=== PATIENT | female | born 2000 | race Caucasian/White ===

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

== ENCOUNTER 2022-10-01 13:30 | Emergency (ER) | payer OTHER, SELFPAY ==
[2022-10-01] VITALS (11 sets, daily range): BP systolic 111–143; BP diastolic 56–70; PULSE 99–129; RESP 16–30; TEMP 36.2; O2SAT 94–100
--- NOTE | ~2022-10-01 | XR_ITS ---
XR chest 1V portable INDICATION: Shortness of breath and cough TECHNIQUE: 2 view chest. FINDINGS: . Comparison to 11/09/2021 There is mild bilateral interstitial prominence and peribronchial cuffing. There is no focal consoli dation, pleural effusion, or pneumothorax. The cardiomediastinal silhouette is normal. IMPRESSION: 1. Findings most consistent with bronchiolitis versus an atypical or viral pneumonia. Reviewed, dictated and finalized at location L. GER SEMICONDUCTOR IMPRESSION: 1. Findings most consistent with bronchiolitis versus an atypical or viral pne [facility].
--- NOTE | 2022-10-01 14:12 | ED.GENADULT ---
HPI - General Adult General Chief complaint: Asthma Stated complaint: asthma exacerbation Time Seen by Provider: 10/01/22 14:03 History of Present Illness HPI narrative: 22-year-old female with history of asthma presented to the emergency department for evaluation of worsening cough and wheeze. Patient states she did have a small amount of cough yesterday and did use her albuterol inhaler and did feel improved. Patient states this morning she felt that her wheeze was worsened. Patient did attempt to use her emergency inhaler and did do a nebulized breathing treatment as well. Patient did not feel these help significant today. Patient reports her medication did and 2020. Patient states that her asthma has been better controlled over the last few years. Patient states she is not a smoker. Patient believes she is vaccinated against COVID and influenza. Related Data Home Medications Medication Instructions Recorded Confirmed albuterol sulfate 90 mcg/actuation inhalation 09/13/19 aerosol inhaler beclomethasone dipropionate 80 inhalation 09/13/19 mcg/actuation HFA breath activated aerosol (Qvar RediHaler) escitalopram oxalate 10 mg tablet mg 09/13/19 famotidine 20 mg tablet 09/13/19 loratadine 10 mg tablet mg 09/13/19 mometasone-formoterol HFA 200 inhalation 09/13/19 mcg-5 mcg/actuation aerosol inhaler (Dulera) Allergies Allergy/AdvReac Type Severity Reaction Status Date / Time No Known Allergies Allergy Unknown Verified 10/01/22 13:31 Review of Systems Review of Systems: CONSTITUTIONAL: Denies fever, chills, or sweats. EYES: Denies visual changes, redness, or discharge. ENT: Denies rhinorrhea, congestion, sore throat, or otalgia. CARDIOVASCULAR: Denies chest pain, palpitations, or edema. RESPIRATORY: Denies cough or dyspnea. GASTROINTESTINAL: See HPI GENITOURINARY: Denies dysuria or hematuria. SKIN: Denies rash or itching. MUSCULOSKELETAL: Denies back pain, joint pain, or myalgia. NEUROLOGIC: Denies headache, numbness, or weakness. [facility], LAT[facility] Past Medical History Medical History (Updated 10/01/22 @ 21:29 by Chele Scott MD) Anxiety Depression Surgical History Surgical History (Updated 11/09/21 @ 01:30 by Rio Triplett MD) No pertinent past surgical history Social History Social History (Updated 09/13/19 @ 10:56 by Beverley Elias, GALLERY INTERN) Smoking status: Never smoker Exam Narrative: APPEARANCE: Well appearing, no pain, no distress, well-nourished. HEAD: normocephalic, atraumatic. EYES: PERRLA/EOMI, conjunctivae clear. NOSE: Normal no drainage THROAT: Pharynx clear, no exudate. NECK: Supple. No adenopathy, no masses. RESPIRATORY: Airway is patent, respirations nonlabored. Patient does have expiratory wheeze in bilateral lung suazo. CARDIOVASCULAR: Regular rate and rhythm without murmurs rubs or gallops. ABDOMINAL: Soft, nontender, nondistended, normal bowel sounds MUSCULOSKELETAL: Moves all extremities. Strength/ROM intact, No edema, No calf tenderness. NEURO: Alert. Cranial nerves II through XII intact. Grossly intact SKIN: Warm, dry. Normal Color Course Course Emergency Course: 22-year-old female with history of asthma. Patient was treated with albuterol nebulizer to help with her asthma exacerbation. Chest x-ray has been ordered to rule out possible underlying pneumonia. COVID and influenza is also being ordered. Patient family were updated on the plan for work-up and treatment. 3:07 PM patient was still having significant wheezing after her breathing treatment. Patient had a continuous neb of albuterol and ipratropium ordered. Patient was also treated with IV Solu-Medrol. 5:40 PM patient did feel improved with treatment. Patient's wheeze is significantly improved. Patient was started on azithromycin for atypical pneumonia. Patient and family were updated on the results of the work-up. All questions concerns were addressed. Vital Signs Vital sig
[2022-10-01] MEDS: ALBUTEROL SULFATE NEB 2.5 MG/3 ML INH 5 MG INHALATION (14:56)
[2022-10-01] MEDS: IPRATROPIUM BR 0.02% INH SOLN 0.5 MG/2.5 ML VIAL 2 MG INHALATION (15:16)
[2022-10-01] MEDS: ALBUTEROL SULFATE NEB 2.5 MG/3 ML INH 10 MG INHALATION (15:16)
[2022-10-01 16:35] LABS: Influenza A QL RT-PCR Negative (Negative); Influenza B QL RT-PCR Negative (Negative); RSV RNA, RT-PCR Negative (Negative); SARS-CoV-2 RNA PCR Negative
[2022-10-01] MEDS: methylPREDNISolone SOD SUCC 125 MG VIAL IV PUSH (16:50)
[2022-10-01] MEDS: SODIUM CHLORIDE 0.9% IV 1,000 ML 999 ML IV CONT (17:44)
== END 2022-10-01 19:08 | disposition home or self-care (01) ==
PROVIDERS: Emergency Provider Emergency Medicine
DX: J45.901 Unspecified asthma with (acute) exacerbation (principal); J18.9 Pneumonia, unspecified organism; Z20.822 Contact with and (suspected) exposure to COVID-19; F41.9 Anxiety disorder, unspecified; F32.A Depression, unspecified
CPT/HCPCS: 71045; 87637; 94640; 96365; 96375; 99284; J0456; J2930; J7030

== ENCOUNTER 2024-07-12 00:34 | Emergency (ER) | payer SELFPAY ==
[2024-07-12] VITALS (7 sets, daily range): BP systolic 109–141; BP diastolic 78–95; PULSE 77–116; RESP 14–20; TEMP 36.5–36.7; O2SAT 99–100
--- NOTE | ~2024-07-12 | XR_ITS ---
Clinical Indication: Shortness of breath PA and lateral views of the chest: Comparison: 10/01/2022 Findings: The lungs are clear, without evidence of focal consolidation or pleural effusion. Cardiome diastinal silhouette is within normal limits. Bones and soft tissues are unremarkable. Impression: Normal chest. Reviewed, dictated and finalized at location . [facility] PHYS Impression: Normal chest.
--- NOTE | 2024-07-12 00:41 | ECG_ITS ---
Test Date: 2024-07-12 00:45:56 Measurements Intervals [place] Rate: 103 P: 40 MT: 120 QRS: 54 QRSD: 81 T: 43 QT: 330 QTc: 432 Interpretive Statements SINUS TACHYCARDIA OTHERWISE NORMAL ECG No previous ECG available for comparison Electronically Signed On 07-12-2024 10:56:43 STAFF NURSE ICU RESOURCE TEAM by Ugo Alvarez M.D.
[2024-07-12 01:53] LABS: Basophils Absolute Auto 0.2 K/mm3 (0.0-0.1); Basophils Percent Auto 1.2 % (0.2-1.2); Eosinophils Absolute Auto 1.8 K/mm3 (0-0.3); Eosinophils Percent Auto 12.4 % (0-4.4); Hematocrit 42.3 % (37.0-47.0); Hemoglobin 14.1 g/dL (12.0-15.0); Immature Granulocyte Absolute 0.05 K/mm3 (0.00-0.031); Immature Granulocyte Percent A 0.3 % (0-0.5); Lymphocytes Absolute Auto 4.11 K/mm3 (0.9-3.2); Lymphocytes Percent Auto 28.2 % (18.3-44.2); Mean Corpuscular HGB Conc 33.3 g/dl (32-36); Mean Corpuscular Hemoglobin 28.3 pg (26-34); Mean Corpuscular Volume 84.8 fl (80-100); Mean Platelet Volume 9.9 fl (7.4-10.4); Monocytes Absolute Auto 0.7 K/mm3 (0.1-0.6); Neutrophils Absolute Auto 7.7 K/mm3 (1.3-6.7); Neutrophils Percent Auto 52.9 % (45.5-73.1); Platelet Count Result 303 k/mm3 (150-375); Red Blood Count 4.99 M/mm3 (4.2-5.4); White Blood Count 14.6 K/mm3 (4.5-10.0)
[2024-07-12 02:04] LABS: Alanine Aminotransferase 20 U/L (6-35); Albumin Level 4.4 g/dL (3.5-5.1); Alkaline Phosphatase 81 U/L (38-126); Anion Gap 5 mmol/L (4-12); Aspartate Amino Transferase 22 U/L (14-36); Bilirubin,Total 0.4 mg/dL (0.2-1.3); Blood Urea Nitrogen 10 mg/dL (7-17); Calcium 9.4 mg/dL (8.4-10.2); Carbon Dioxide 26 mmol/L (22-30); Chloride 107 mmol/L (98-107); Estimated CRCL calculation 137 ml/min; Estimated Glomerular Filt Rate > 60; Glucose 99 mg/dL (65-110); Sodium 138 mmol/L (137-145)
[2024-07-12] MEDS: IPRATROPIUM 0.5 MG/ALBUTEROL SULFATE 2.5 MG AMPUL.NEB 3 ML INHALATION (03:30)
[2024-07-12] MEDS: methylPREDNISolone SOD SUCC 125 MG VIAL IV PUSH (03:37)
[2024-07-12] MEDS: BENZONATATE 100 MG CAPSULE 200 MG PO (03:37)
[2024-07-12] MEDS: KETOROLAC 15 MG/ML VIAL (*BKC) IV PUSH (03:37)
--- NOTE | 2024-07-12 03:56 | ED.GENADULT ---
HPI - General Adult General Chief complaint: Shortness of Breath/Dyspnea Stated complaint: cough and wheezing for 2 weeks Time Seen by Provider: 07/12/24 02:32 History of Present Illness HPI narrative: Patient 24-year-old female who presents emergency department with chief complaint of cough and wheezing patient reports she has prior history of asthma reports she has been using albuterol inhaler and nebulizer without relief. The patient reports the cough is nonproductive denies fever Related Data Home Medications Medication Instructions Recorded Confirmed albuterol sulfate 90 mcg/actuation inhalation 09/13/19 aerosol inhaler beclomethasone dipropionate 80 inhalation 09/13/19 mcg/actuation HFA breath activated aerosol (Qvar RediHaler) escitalopram oxalate 10 mg tablet mg 09/13/19 famotidine 20 mg tablet 09/13/19 loratadine 10 mg tablet mg 09/13/19 mometasone-formoterol HFA 200 inhalation 09/13/19 mcg-5 mcg/actuation aerosol inhaler (Dulera) Allergies Allergy/AdvReac Type Severity Reaction Status Date / Time No Known Allergies Allergy Unknown Verified 07/12/24 00:35 Review of Systems Review of Systems: A 10 system review of systems was completed on the patient and is negative except for what is stated in the HPI. Nursing and ancillary documentation was reviewed. PMFSH Past Medical History Medical History Anxiety Depression Surgical History Surgical History No pertinent past surgical history Social History Social History Smoking status: Never smoker Exam Narrative: GENERAL: Well-appearing, well-nourished, and in no acute distress. HEAD: Normocephalic, atraumatic. EYES: PERRLA and EOMI. ENT: Nares clear, no rhinorrhea or epistaxis. Mucous membranes moist. NECK: Supple. CHEST: Scattered wheezes to auscultation. No respiratory distress. HEART: Regular rate and rhythm. No murmur heard. Normal peripheral pulses. ABDOMEN: Soft, nontender, nondistended, normal active bowel sounds. EXTREMITIES: Normal range of motion. No edema. SKIN: Warm, dry, no rash. NEURO: No focal deficits. Alert and oriented x3. PSYCH: Normal mood and affect. Course Vital Signs Vital signs: Vital Signs Temperature 36.5 C 07/12/24 00:37 Pulse Rate 116 H 07/12/24 00:37 Respiratory Rate 20 07/12/24 00:37 Blood Pressure 122/83 07/12/24 00:37 Pulse Oximetry 100 07/12/24 00:37 Oxygen Delivery Room Air 07/12/24 00:37 Temperature 36.7 C 07/12/24 03:09 Pulse Rate 95 07/12/24 03:30 Respiratory Rate 14 07/12/24 03:30 Blood Pressure 109/95 H 07/12/24 03:09 Pulse Oximetry 100 07/12/24 04:12 Oxygen Delivery Room Air 07/12/24 04:12 Medical Decision Making MDM Narrative Medical decision making narrative: Differential diagnosis includes pneumonia, asthma exacerbation, Chest x-ray showed no focal infiltrate The patient received IV steroids and breathing treatment emergency department Vital Signs Vital Signs: Vital Signs Temperature 36.5 C 07/12/24 00:37 Pulse Rate 116 H 07/12/24 00:37 Respiratory Rate 20 07/12/24 00:37 Blood Pressure 122/83 07/12/24 00:37 Pulse Oximetry 100 07/12/24 00:37 Oxygen Delivery Room Air 07/12/24 00:37 Temperature 36.7 C 07/12/24 03:09 Pulse Rate 95 07/12/24 03:30 Respiratory Rate 14 07/12/24 03:30 Blood Pressure 109/95 H 07/12/24 03:09 Pulse Oximetry 100 07/12/24 04:12 Oxygen Delivery Room Air 07/12/24 04:12 Lab Data 07/12/24 01:47 07/12/24 01:47 Labs: Lab Results 07/12/24 07/12/24 Range/Units 01:47 03:39 WBC 14.6 H (4.5-10.0) K/mm3 RBC 4.99 (4.2-5.4) M/mm3 Hgb 14.1 (12.0-15.0) g/dL Hct 42.3 (37.0-47.0) % MCV 84.8 (80-100) fl MCH 28.3 (26-34) pg MCHC 33.3 (32-36) g/dl RDW 13.0 (11.5-14.5) % Plt Count 303 (150-375) k/mm3 MPV 9.9 (7.4-10.4) fl Immature Gran % (Auto) 0.3 (0-0.5) % Neut % (Auto) 52.9 (45.5-73.1) % Lymph % (Auto) 28.2 (18.3-44.2) % [place] % (Auto) 5.0 (2.6-8.5) % Eos % (Auto) 12.4 H (0-4.4) % Baso % (Auto) 1.2 (0.2-1.2) % Lymph # (Auto) 4.11 H (0.9-3.2) K/mm3 [place] # (Auto) 0.7 H (0.1-0.6) K/mm3 Eos # (Auto) 1.8 H (0-0.3) K/mm3 Baso # (Auto) 0.2 H (0.0-0.1) K/mm3 Abs Immat Gran (auto) 0.05 H (0.00-0.031) K/mm3 Absolute Neuts (auto) 7.7 H (1.3-6.7) K/mm3 Absolute Nucleated RBC 0.000 (0.0-0.012) K/mm3 Nucleated RBC % 0.0 (0.0-0.2) % Sodium 138 (137-145) mmol/L Potassium 4.0 (3.4-5.0) mmol/L Chloride 107 (98-107) mmol/L Carbon Dioxide 26 (22-30) mmol/L Anion Gap 5 (4-12) mmol/L BUN 10 (7-17) mg/dL Creatinine 0.70 (0.7-1.0) mg/dL Estim Creat Clear Calc 137 ml/min Estimated GFR > 60 (59 - ) Glucose 99 (65-110) mg/dL Calcium 9.4 (8.4-10.2) mg/dL Total Bilirubin 0.4 (0.2-1.3) mg/dL AST 22 (14-36) U/L ALT 20 (6-35) U/L Alkaline Phosphatase 81 (38-126) U/L Total Protein 7.0 (6.3-8.2) g/dL Albumin 4.4 (3.5-5.1) g/dL Influenza A (RT-PCR) Negative (Negative) Influenza B (RT-PCR) Negative (Negative) RSV (RT-PCR) Negative (Negative) SARS-CoV-2 RNA (RT-PCR) Negative (Negative) Discharge Plan Discharge Clinical Impression: Acute viral bronchitis Patient Disposition: Home, Self-Care Condition: Stable Instructions: Antibiotic Form, Acute Bronchitis (ED) Prescriptions: New prednisone 20 mg tablet 40 mg PO DAILY 5 Days Qty: 10 0RF benzonatate 200 mg capsule 200 mg PO TID PRN (Reason: cough) Qty: 21 0RF albuterol sulfate 90 mcg/actuation HFA aerosol inhaler 2 puff inhalation QID PRN (Reason: shortness of breath or wheezing) Qty: 8.5 0RF albuterol sulfate 2.5 mg /3 mL (0.083 %) solution for nebulization 2.5 mg inhalation Q6-8H PRN (Reason: bronchospasm) Qty: 75 0RF No Action famotidine 20 mg tablet albuterol sulfate 90 mcg/actuation HFA aerosol inhaler INHALATION loratadine 10 mg tablet escitalopram oxalate 10 mg tablet Dulera 200-5 mcg/actuation HFA aerosol inhaler INHALATION Qvar RediHaler 80 mcg/actuation HFA aerosol breath activated INHALATION nitrofurantoin monohyd/m-cryst [Macrobid] 100 mg capsule 100 mg PO Q12H 5 Days Qty: 10 0RF Rx Instructions: must administer with a meal/food meloxicam 7.5 mg tablet 7.5 mg PO DAILY Qty: 10 0RF cyclobenzaprine 5 mg tablet 5 mg PO TID PRN (Reason: muscle spasm) Qty: 15 0RF meclizine 12.5 mg tablet 12.5 mg PO TID PRN (Reason: motion sickness) Qty: 10 0RF prednisone 50 mg tablet 50 mg PO DAILY 5 Days Qty: 5 0RF azithromycin 250 mg tablet See Rx Instructions .ROUTE .COMPLEX Qty: 6 0RF Rx Instructions: For 250 mg dose pack: take 500 mg today (day 1), then 250 mg for 4 days (days 2-5) albuterol sulfate 2.5 mg /3 mL (0.083 %) solution for nebulization 2.5 mg inhalation Q6H Qty: 75 0RF Follow-up/Referrals: Nathan Almanzar MD [Physician] - PHYSICIAN NOT ON STAFF,NONSTAFF [Primary Care Provider] - Time of Disposition: 04:26
[2024-07-12 04:18] LABS: Influenza A QL RT-PCR Negative (Negative); Influenza B QL RT-PCR Negative (Negative); RSV RNA, RT-PCR Negative (Negative); SARS-CoV-2 RNA PCR Negative (Negative)
== END 2024-07-12 04:45 | disposition home or self-care (01) ==
PROVIDERS: Emergency Provider Emergency Medicine
DX: J20.8 Acute bronchitis due to other specified organisms (principal); Z20.822 Contact with and (suspected) exposure to COVID-19; R00.0 Tachycardia, unspecified
CPT/HCPCS: 36415; 71046; 80053; 85025; 87637; 93005; 96374; 96375; 99284; A9270; J1885; J2919

== ENCOUNTER 2025-07-25 20:09 | Emergency (ER) | payer OTHER, SELFPAY ==
--- NOTE | ~2025-07-25 | XR_ITS ---
Examination: XR chest 2V Clinical History: SHOB, hx asthma Comparison: 07/12/2024 Technique: PA and Lateral Findings: Cardiomediastinal silhouette normal size and configuration. Lungs clear. No acute bony abnormality. IMPRESSION: 1. No acute cardiopulmonary findings. Reviewed, dictated and finalized at location R. CLUB HEAD FORMER
--- OUTSIDE RECORDS SUMMARY | 2025-07-25 20:11 | XMS_ITS | Encounter Summary ---
Author Organization [facility] Address [address] [place] [address] Phone Care Team Providers Care Camera Storage Clerk Name Role Phone Odalis Epperson APRN, WIRE HANGER Unavailable [phone] Evelyn Monroe APRN, FILLER OPERATOR Primary Care Provider [phone] Reason for Visit * Reason Onset Date Comments Advice Only 07/25/2025 Encounter Details Date Type Department Care Team (Late st Contact Info) Description 07/25/2025 Telephone [facility] [address] [place] [address] Evelyn Monroe, NATHAN, FILLER OPERATOR [address] [facility] [address] [place] [address] Advice Only Social History Tobacco Use Types Packs/Day Years Used Date Smoking Tobacco: Never Smokeless Tobacco: Never Alcohol Use Standard Drinks/Week Comments Yes 0 (1 standard drink = 0.6 oz pur e alcohol) PHQ-2 Answer Date Recorded Total Score - Questions 1-9 0 03/09 Social Connection and Isolation Panel Answer Date Recorded In a typical week, how many times do you talk on the phone with family, friends, or neighbors? More than three times a week 03/19/2025 How often do you get togethe r with friends or relatives? More than three times a week 03/19/2025 How often do you attend chur or episcopalian services? 1 to 4 times per year 03/19/2025 Do you belong to any clubs o r organizations such as christian groups, unions, fraternal or athletic groups, or school groups? No 03/19/2025 How often do you attend meet ings of the clubs or organizations you belong to? Never 03/19/2025 Are you , , di vorced, , never , or living with a partner? Never 03/19/2025 AUDIT-C Answer Date Recorded Q1: How often do you have a drink containing alc ohol? Monthly or less 03/19/2025 Q2: How many drinks containi ng alcohol do you have on a typical day when you are drinking? 1 or 2 03/19/2025 Q3: How often do you have si x or more drinks on one occasion? Less than monthly 03/19/2025 Overall Financial Resource Strain (CARDIA) Answe r Date Recorded How hard is it for you to pa y for the very basics like food, housing, medical care, and heating? Not hard at all 03/19/2025 [facility] [place] of Occupat ional Health - Occupational Stress Questionnaire Answer Date Recorded Do you feel stress - tense, restless, nervous, or anxious, or unable to sleep at night because your mind is troubled all the time - these days? Only a little 03/19/2025 Exercise Vital Sign Answer Date Recorde d On average, how many days pe r week do you engage in moderate to strenuous exercise (like a brisk walk)? 2 days 03/19/2025 On average, how many minutes do you engage in exercise at this level? 30 min 03/19/2025 Hunger Vital Sign Answer Date Recorded Within the past 12 months, y ou worried that your food would run out before you got the money to buy more. Never true 03/19/20 25 Within the past 12 months, t he food you bought just didn't last and you didn't have money to get more. Never true 03/19/2025 PRAPARE - Transportation Answer Date Re corded In the past 12 months, has l ack of transportation kept you from medical appointments or from getting medications? No 03/09 In the past 12 months, has l ack of transportation kept you from meetings, work, or from getting things needed for daily living? No 03/19/2025 Housing Stability Vital Sign Answer Anthony e Recorded In the last 12 months, was t here a time when you were not able to pay the mortgage or rent on time? No 03/19/2025 Number of Times Moved in the Last Year Not on fi le 03/19/2025 At any time in the past 12 m [facility], were you homeless or living in a halfway (including now)? No 03/19/2025 [facility] Utilities Answer Date Recorded In the past 12 months has [facility] electric, gas, oil, or water company threatened to shut off services in your home? No 03/19/2025 Sexually Active Control Partners Comments Yes Male Condom Male Comments Unknown Sex and Gender Information Value Date Recorded Sex Assigned at Not on file Legal Sex Female 10:21 PM CDT Gender Identity Not on file Sexual Orientation Not on file documented as of this encounter Miscellaneous Notes * Telephone Encounter - Neelam Blackwell - 07/25/2025 3:21 PM CST Symptom: Breathing Trouble Outcome: Transfer to telecom assistant queue Reason: Caller denied all higher acuity questions The caller accepted this outcome. Caller Denied: * Bluish color of lips or face now * Choked on something solid * Age less than 1 year old * Uses oxygen * Trouble breathing through the mouth ER OPERATOR documented in this encounter Plan of Treatment Upcoming Encounters Date Type Department Care Team (Late st Contact Info) Description 09/07/2025 9:30 AM LINTER OPERATOR [facility] - Neurology [facility] [address] [place] [address] Cindy Sotelo APRN, FILLER OPERATOR [address] [place] [address] 09/19/2025 11:00 AM LINTER OPERATOR Office Visit [facility] - Family Medicine [facility] [address] [place] [address] Evelyn Monroe APRN, FILLER OPERATOR 2 [facility], [facility] [address] [place] [address] documented as of this encounter Visit Diagnoses Not on filedocumented in this encounter Additional Health Concerns Assessment Noted Time PHQ-9 Depression Total Score: 0 03/19/20 25 9:33 AM CDT documented as of this encounter Care Teams Camera Storage Clerk Relationship Specialty Start Date End Date Fer November Rylee, PLEATING SUPERVISOR, FILLER OPERATOR 2 [facility]rist[address] [address] PCP - General Advanced Practice Nurse 03/19/25 Odalis Epperson APRN, WIRE HANGER [address] [place] [address] Nurse Practitioner Advanced Practice Nurse 11/28/24 documented as of this encounter
--- OUTSIDE RECORDS SUMMARY | 2025-07-25 20:11 | XMS_ITS | Clinical Summary ---
Author Organization [facility] Address [address] [facility] [place] [address] Care Team Providers Care Biscuit Machine Operator Name Role Phone Ranjana Lawrence MD Primary Care Provider [phone] Source Comments [facility],non-owned Affiliates and Associated Physician Practices is amultiple site organization consisting of ambulatory clinics and hospital sitesin [place], [place], [place] and [place]. This disclosure is being madepursuant to the Care Everywhere program and may not contain all information available regarding this patient. Last updated 18.[facility] A[facility] Allergies No known active allergies Medications * Be aware that medications may not be up to date on this document. Alwaysverify current medications with the patient. sertraline (ZOLOFT) 50 MG tablet Take 50 mg by mouth once daily Active albuterol HFA (PROAIR HFA) 108 (90 BASE) MCG/ACT inhalerIndicatio ns:Moderate persistent asthma without complication (HCC) Inhale 2 Puffs by mouth every 6 hours as needed (per an asthma action plan and before exertion.) 1 Inhaler 6 10/05/19 17 Active montelukast (SINGULAIR) 5 MG chew tabletIndication s:Non-seasonal allergic rhinitis due to other allergic trigger,Moderate persistent asthma without complication (HCC) Take 1 Tab by mouth every evening 30 Tab 5 10/05/19 17 Active budesonide-formo terol (SYMBICORT) 80-4.5 MCG/ACT inhalerIndicatio ns:Moderate persistent asthma without complication (HCC) Inhale 2 Puffs by mouth 2 times daily 1 Inhaler 6 10/05/19 17 Active albuterol (PROVENTIL;JUSTIN CLAYTON) (5 MG/ML) 0.5% nebulizer solution Inhale 1 mL by mouth 4 times daily as needed for Shortness of Breath or Wheezing 20 mL 01/29/20 17 Active ibuprofen (MOTRIN) 800 MG tablet Take 1 Tab by mouth every 6 hours as needed for Pain Collaborating Physician: Yoni Young MD 30 Tab 03/22/20 17 Active Additional Information Patient not taking.Reported on 12/06/2018 ondansetron, disintegrating, (ZOFRAN ODT) 4 MG tablet Dissolve 1 tablet under the tongue every 8 hours as needed for Nausea/Vomiting Allow tablet to dissolve on the tongue 3 tablet 12/07/19 19 Active famotidine (PEPCID) 20 MG tablet Take 1 tablet by mouth once daily 30 tablet 12/07/19 19 Active Active Problems Problem Noted Date Diagnosed Date Moderate persistent asthma without complication 10/05/2016 Perennial allergic rhinitis 10/05/2016 Overview (10/05/2016): 08/16/16: IgE immunocaps +to cat, dog, mouse, and weeds. Trace to dust mites. Depression 08/13/2016 Anxiety 08/13/2016 Resolved Problems Problem Noted Date Diagnosed Date Resolved Date Asthma with acute exacerbation 08/13/2016 08/27/2016 Assessment & Plan (08/13/2016 10:09 AM HEALTH PROFESSIONAL): Assessment: Improving, stable on room air. Plan: -Albuterol treatments Q4 hours -continue prednisone 1 mg/kg PO BID day 1 of 7 -asthma education for patient and family -restart Qvar 80 2 puffs BID with spacer -continue montelukast Assessment & Plan (08/13/2016 8:08 AM HEALTH PROFESSIONAL): Assessment: Nena March is a 16 y.o. female with history of asthma, depression, and anxiety who presents with asthma exacerbation. Poorly controlled asthma without patient using controller medication. Treated 08/04 in ED with albuterol treatment and 5 day course of prednisone. Symptoms returned and treated in OSH ED 1/4 with 2 long albuterol treatments, IV solumedrol, and IV magnesium before transfer to ED. JASMIN 2 upon arrival. No further treatment required in ED due to extensive treatment at OSH and patient admitted to Allergy/Immunology. Plan: - Admit to Allergy/Immunology service, Dr. Moss. - Albuterol asthma pathway dosing per RT - Prednisone daily - Asthma education - Continue home Zoloft daily - Continue home Singulair daily - Vitals q8 - Continuous pulse ox - Is/Os - Regular diet Mild persistent asthma with acute exacerbation 08/27/2016 Immunizations Immunization Administration Dates Next Due INFLUENZA VACCINE, QUADR. (F LUZONE; FLULAVAL; FLUARIX; AFLURIA QUADRIVALENT; 6MO+), 0.5 ML (IIV4) 08/13/2016 MENINGOCOCCAL ACWY MENVEO 05/28/2020 Social History Tobacco Use Types Packs/Day Years Used Date Smoking Tobacco: Passive Smo ke Exposure - Never Smoker Smokeless Tobacco: Never Alcohol Use Standard Drinks/Week Comments No 0 (1 standard drink = 0.6 oz pur e alcohol) Comments Unknown Sex and Gender Information Value Date Recorded Sex Assigned at Not on file Legal Sex Female 2:29 AM HEALTH PROFESSIONAL Gender Identity Not on file Sexual Orientation Not on file Last Filed Vital Signs Vital Sign Reading Time Taken Comments Blood Pressure 128/75 12/06/2018 1:21 PM CDT Pulse 72 12/06/2018 5:22 PM CDT Temperature 36.9 C (98.4 F) 12/06/2018 5:22 PM CDT Respiratory Rate 16 12/06/2018 5:22 PM CDT Oxygen Saturation 97% 12/06/2018 1:21 PM CDT Inhaled Oxygen Concentration - - Weight 94 kg (207 lb 3.7 oz) 12/06/2018 1:21 PM CDT Height 163.8 cm (5' 4.5) 08/04/2017 5:34 PM HEALTH PROFESSIONAL Body Mass Index - - Plan of Treatment Health Maintenance Due Date Last Done Comments HIV SCREENING 2017 HPV VACCINE (1 - 3-dose series) 2017 MENINGOCOCCAL (Group B) VACC INE SHARED DECISION-MAKING (1 of 2 - Standard) 2018 CHLAMYDIA/GONORRHEA SCREENING 12/07/2019 12/06/2018 HEPATITIS C SCREENING 05/07/2020 DTAP/TDAP/TD VACCINES (1 - Tdap) 2021 HEPATITIS B VACCINE (1 of 3 - 19+ 3-dose series) 2021 DEPRESSION SCREENING 08/09/2024 COVID-19 VACCINE (1 - 2024-2 6 season) 2025 INFLUENZA VACCINE (#1) 2025 08/13/2016 ZOSTER VACCINE (1 of 2) 2052 MENINGOCOCCAL GROUPS A/C/Y/W VACCINE Completed 05/28/2020 HIB VACCINE Aged Out No longer eligi ble based on patient's age to complete this topic PNEUMOCOCCAL VACCINE Aged Out No long er eligible based on patient's age to complete this topic Procedures Procedure Name Priority Date/Time Associated Diagnosis Comments CHLAMYDIA + GC AMPLIFIED PROBE STAT 12/06/2018 3:03 PM CDT from Last 3 Months or Most Recently Relevant to Health Maintenance Results * CHLAMYDIA + GC AMPLIFIED PROBE (12/06/2018 3:03 PM CDT) Chlamydia Amplified Probe Negative Negative 12/07/2018 7:40 AM CDT [facility] GC Amplified Probe Negative Negative 12/07/2018 7:40 AM CDT [facility] Microbiology URINE / Unknown Collection / Unknown 12/06/2018 3:03 PM CDT 12/06/2018 3:28 PM CDT Narrative [facility] - 12/07/2018 7:40 AM CDT Results based on detection/no detection of ribosomal RNA by amplified method. us Stephanie Roa MD LAB - MICROBIOLOGY ORDERABLE S Final Result [facility] [address] [place], [place] [address], [facility] [phone] from Last 3 Months or Most Recently Relevant to Health Maintenance Insurance [facility] [place] [address] [facility] Care Teams Biscuit Machine Operator Relationship Specialty Start Date End Date Ranjana Lawrence MD [address] [id number] PCP - General Pediatrics 12/06/18
--- OUTSIDE RECORDS SUMMARY | 2025-07-25 20:11 | XMS_ITS | Encounter Summary ---
Author Organization [facility] Address [address] [place] [address] Phone Care Team Providers Care Logistics Administrator Name Role Phone Odalis Epperson APRN, BUSINESS LOAN PROCESSOR Unavailable [phone]- [phone] Evelyn Monroe APRN, FUEL OIL TRUCK DRIVER Primary Care Provider [phone] -[phone] Reason for Visit * Reason Onset Date Comments Shortness of Breath 07/25/2025 Wheezing 07/25/2025 Cough 07/25/2025 Encounter Details Date Type Department Care Team (Late st Contact Info) Description 07/25/2025 Nurse Triage [facility] [address] [place] [phone] Evelyn Monroe, NATHAN, FUEL OIL TRUCK DRIVER 2 [facility] [address] [place] [address] Shortness of Breath; Wheezing; Cough Social History Tobacco Use Types Packs/Day Years [...] week 03/19/2025 How often do you attend [facility] or yazidism services? 1 to 4 times per year 03/19/2025 Do you belong to any clubs o r organizations such as holiness groups, unions, fraternal or athletic groups, or [...] and heating? Not hard at all 03/19/2025 [facility] Occupat ional Health - Occupational Stress [...] any time in the past 12 m [facility], were you homeless or living in a skilled nursing (including now)? No 03/19/2025 [facility] Utilities Answer Date Recorded In the past 12 months has th e electric, gas, oil, or water company threatened [...] encounter Miscellaneous Notes * Telephone Encounter - Angela Mcmillan RN - 07/25/2025 3:23 PM SUCTION WORKER SITUATION: 25 y.o. with difficulty breathing and chest tightness, with wheezing and coughing. BACKGROUND: Patient contacting PCP office. Per chart review, last office visit: 06/07/2025 Treatment: Patient states the rescue inhaler is not helping. She believes symptoms are from the weather and being out in the cold. Symptoms onset last night. ASSESSMENT: Wheezing and coughing Can not take deep breaths Is able to breath through her nose, but feels like she can not breathe in all the way. Patient alsofeels like she can not fully exhale all of the air she needs to - which is causing pain in her backand chest tightness. Moderate shortness of breath - at rest - is able to speak in full sentences. Best is 450 - blowing 240 right now on peak flow meter. 02 saturation: patient's os not working. RECOMMENDATION: Go to Office or Video Visit Now. Caller agreeable to highest disposition listed: Care advice provided per triage guideline. Caller verbalized understanding. Due to office unavailability within disposition, advised for patient to be seen at prompt care or urgent care. Caller agreeable to prompt care/urgent care. Discussed utilizing [employer] to: schedule appointments - Reason for Disposition: Quick-relief asthma medicine (e.g., albuterol /salbutamol, levalbuterol by inhaler or nebulizer) isneeded more frequently than every 4 hours to keep you comfortable . Protocols Used: Asthma Attack-A-OH See care advice and disposition for Guideline. First positive answer recorded, all responses to prior questions were negative. If symptoms increase, change or if new symptoms develop, call your health care provider or call back. Recommendations were based on caller information and is not a diagnosis. Verified and reviewed all triage information with caller. ION WORKER documented in this encounter Plan of Treatment Upcoming Encounters Date Type Department Care Team (Late st Contact Info) Description 09/07/2025 9:30 AM SUCTION WORKER Office Visit [facility] - Neurology - [place] [address] [place] [address] Cindy Sotelo APRN, FUEL OIL TRUCK DRIVER [address] [place] [address] 09/19/2025 11:00 AM SUCTION WORKER Office Visit [facility] Medical [facility] - Family Medicine - [place] [address] [place] [address] Evelyn Monroe APRN, AMARILIS [address] [address] documented as of this encounter Visit Diagnoses Not on filedocumented in this encounter Additional Health Concerns Assessment Noted Time PHQ-9 Depression Total Score: 0 03/19/20 25 9:33 AM CDT documented as of this encounter Care Teams Logistics Administrator Relationship Specialty Start Date End Date Evelyn Monroe APRN, AMARILIS 2 [facility] [address] [address] PCP - General Advanced Practice Nurse 03/19/25 Odalis Epperson, AIRSET MOLDER, BUSINESS LOAN PROCESSOR [address] [place] [address] Nurse Practitioner Advanced Practice Nurse 11/28/24 documented as of this encounter
--- OUTSIDE RECORDS SUMMARY | 2025-07-25 20:11 | XMS_ITS | Clinical Summary ---
Author Organization [facility] Address [address] [place] [address] Phone Care Team Providers Care Chest Painting And Sealing Supervisor Name Role Phone Odalis Epperson APRN, BRANCH GENERAL MANAGER Unavailable [phone] Evelyn Monroe MOBILE SERVICE RV TECHNICIAN, EARTH OBSERVATIONS CHIEF SCIENTIST Primary Care Provider [phone] [phone] Allergies No known active allergies Medications Beclomethasone Dipropionate (QVAR IN) take by inhalation. Active Cetirizine HCl (ZYRTEC PO) Take by mouth. Act bailey budesonide-formo terol fumarate (SYMBICORT) 80-4.5 MCG/ACT AerosolIndicatio ns:Intermittent Asthma take 2 Puffs by inhalation daily. Indications: Intermittent Asthma 6.9 g 3 5 Active fluticasone (Flovent HFA) 110 MCG/ACT AerosolIndicatio ns:Asthma take 1 Puff by inhalation daily. Indications: Asthma 12 g 3 5 Active albuterol 108 (90 Base) MCG/ACT Aerosol SolutionIndicati ons:Asthma take 1 Puff by inhalation every 6 hours as needed for Cough or Wheezing. Indications: Asthma 6.7 g 3 5 Active SUMAtriptan (IMITREX) 25 MG TabletIndication s:Migraine Take 1 Tablet by mouth once as needed for Migraine or Headaches. Use as directed. May repeat dose in 2 hours if headache recurs. Indications: Migraine Headache 9 Tablet 2 5 Active topiramate (Topamax) 50 MG TabletIndication s:Chronic migraine with aura without status migrainosus, not intractable Take 1 Tablet by mouth 2 times daily. 60 Tablet Active Active Problems No known active problems Encounters Date Type Department Care Team Description 07/25/2025 Nurse Triage [facility] [address] [place] [address] Evelyn Monroe, NATHAN, EARTH OBSERVATIONS CHIEF SCIENTIST Shortness of Breath; Wheezing; Cough 07/25/2025 Telephone [facility] [address] [place] [phone] Evelyn Monroe, MOBILE SERVICE RV TECHNICIAN, EARTH OBSERVATIONS CHIEF SCIENTIST Advice Only 06/07/2025 9:30 AM CDT Office Visit [facility] - Neurology [facility]3] [address] [place] [address] Odalis Epperson APRN, BRANCH GENERAL MANAGER Chronic migraine with aura without status migrainosus, not intractable (Primary Dx); Uncomplicated asthma, unspecified asthma severity, unspecified whether persistent Discharge Disposition: Discharged to home or Selfcare 06/07/2025 Travel from Last 3 Months Family History Medical History Relation Name Comments No Known Problems Father Diabetes Maternal Grandmother Tete Hypertension Maternal Grandmother Tete Rheumatoid Arthritis Maternal Grandmother Tete Asthma Mother Christina Relation Name Status Comments Father Alive Maternal Grandmother Tete Mother Christina Alive Social History Tobacco Use Types Packs/Day Years Used Date Smoking Tobacco: Never Smokeless Tobacco: Never Tobacco Cessation:Counseling Given: Yes Alcohol Use Standard Drinks/Week Comments Yes 0 [...] 03/19/2025 How often do you attend chur ch or yarsanism services? 1 to 4 times per year 03/19/2025 Do you belong to any clubs o r organizations such as gnosticist groups, unions, fraternal or athletic groups, or [...] and heating? Not hard at all 03/19/2025 [facility] [place] of Occupat ional Health - Occupational Stress [...] any time in the past 12 m [facility], were you homeless or living in a halfway (including now)? No 03/19/2025 [facility] Utilities Answer Date Recorded In the past 12 months has e electric, gas, oil, or water company [...] Sign Reading Time Taken Comments Blood Pressure 114/78 06/07/2025 9:30 AM CDT Pulse 85 06/07/2025 9:30 AM CDT Temperature 36.5 C (97.7 F) 06/07/2025 9:30 AM CDT Respiratory Rate 16 06/07/2025 9:30 AM CDT Oxygen Saturation 100% 06/07/2025 9:30 AM CDT Inhaled Oxygen Concentration - - Weight 126.8 kg (279 lb 9.6 oz) 06/07/2025 9:30 AM CDT Height 152.4 cm (5') 06/07/2025 9:30 AM CDT Body Mass Index 54.61 06/07/2025 9:30 AM CDT Plan of Treatment Upcoming Encounters Date Type Department Care Team (Late st Contact Info) Description 09/07/2025 9:30 AM GOVERNMENT SERVICES PROFESSIONAL Office Visit [facility] - Neurology [facility]3] [address] [place] [address] Cindy Sotelo MOBILE SERVICE RV TECHNICIAN, EARTH OBSERVATIONS CHIEF SCIENTIST [address] [place] [address] 09/19/2025 11:00 AM GOVERNMENT SERVICES PROFESSIONAL Office Visit [facility] - Family Medicine [facility]3] [address] [place] [address] Evelyn Monroe, MOBILE SERVICE RV TECHNICIAN, EARTH OBSERVATIONS CHIEF SCIENTIST 2 [facility]. [address] [place] [address] Health Maintenance Due Date Last Done Comments Hepatitis C Virus (HCV) Screening 2002 Meningococcal B Immunization (1 of 2 - Standard) 2018 Pap Smear 2023 Influenza Immunization (#1) 2025 12/2 08/2020, 06/21/2020, 05/10/2018, Additional history exists SARS-COV-2 Immunization (3 - season) 2025 03/23/2021, 03/02/2021 Respiratory Syncytial Virus (RSV) Immunization (Adult) (1 - 1-dose 75+ series) 2077 Hepatitis B Immunization Completed 003, 2002, 2002 Measles Mumps Rubella (MMR) Immunization Discontinued 05/23/2007, 05/15/2003 Polio (IPV) Immunization Discontinued 007, 08/16/2003, 2002, Additional history exists Varicella Immunization Completed 05/23/2007, 2002 Hepatitis A Immunization Discontinued 04/29/2010, 11/0 01/2006 DTaP/Tdap/Td Immunization Discontinued 2011, 05/23/2007, 08/16/2003, Additional history exists TdaP Immunization Completed 05/17/2012 Human Papillomavirus (HPV) Immunization Completed 11/01/2015, 04/13/2014 Meningococcal Immunization (ACWY) Completed 05/28/2020, 04/07/2018, 04/13/2014 Pneumococcal Immunization Combined Aged Out No longer eligible based on patient's age to complete this topic Rotavirus Immunization Aged Out No lo nger eligible based on patient's age to complete this topic Insurance MEDICAID AETNA [facility] Care Teams Chest Painting And Sealing Supervisor Relationship Specialty Start Date End Date Fer November N, MOBILE SERVICE RV TECHNICIAN, EARTH OBSERVATIONS CHIEF SCIENTIST 2 [facility] KATRIN[employer]Kristofer [address] [address] PCP - General Advanced Practice Nurse 03/19/25 Odalis Epperson, MOBILE SERVICE RV TECHNICIAN, BRANCH GENERAL MANAGER [address] [place] [address] Nurse Practitioner Advanced Practice Nurse 11/28/24
[2025-07-25 20:26] VITALS: BP 133/56; PULSE 113; RESP 23; TEMP 38.1; O2SAT 97
[2025-07-25] MEDS: ACETAMINOPHEN 500 MG TABLET 1000 MG PO (23:03)
[2025-07-25 23:30] LABS: Hematocrit 43.8 % (37.0-47.0); Hemoglobin 14.5 g/dL (12.0-15.0); Immature Granulocyte Percent A 0.5 % (0-0.5); Lymphocytes Absolute Auto 0.65 K/mm3 (0.9-3.2); Mean Corpuscular HGB Conc 33.1 g/dl (32-36); Mean Corpuscular Hemoglobin 28.0 pg (26-34); Mean Corpuscular Volume 84.6 fl (80-100); Nucleated Red Blood Cells Absolute Auto 0.000 K/mm3 (0.0-0.012); Nucleated Red Blood Cells Perc 0.0 % (0.0-0.2); Platelet Count Result 70 k/mm3 (150-375); Red Blood Count 5.18 M/mm3 (4.2-5.4); White Blood Count 9.8 K/mm3 (4.5-10.0)
[2025-07-25 23:34] LABS: Alanine Aminotransferase 21 U/L (6-35); Albumin Level 4.5 g/dL (3.5-5.1); Alkaline Phosphatase 60 U/L (38-126); Anion Gap 9 mmol/L (4-12); Aspartate Amino Transferase 29 U/L (14-36); Bilirubin,Total 0.7 mg/dL (0.2-1.3); Blood Urea Nitrogen 10 mg/dL (7-17); Calcium 9.4 mg/dL (8.4-10.2); Carbon Dioxide 15 mmol/L (22-30); Chloride 109 mmol/L (98-107); Estimated CRCL calculation 129 ml/min; Estimated Glomerular Filt Rate > 60; Glucose 101 mg/dL (65-110); Potassium 4.2 mmol/L (3.4-5.0); Sodium 133 mmol/L (137-145); Total Protein 7.9 g/dL (6.3-8.2)
--- NOTE | 2025-07-25 23:45 | ED_ITS ---
HPI - SOB/Dyspnea General Chief Complaint: Shortness of Breath/Dyspnea Stated Complaint: SOB, weakness, cough Time Seen by Provider: 07/25/25 23:08 History of Present Illness HPI Narrative: 25-year-old female with a history of persistent asthma presenting to the emergency department today with chest tightness, difficulty exhaling, shortness of breath and a nonproductive cough and body aches. She endorses a fever and feels like she is cold. Denies any recent sick contacts recent health concerns or illnesses. She has tried her albuterol inhaler at home without any relief of symptoms. No nausea, vomiting, sick contacts, abdominal pain, diarrhea. Was otherwise doing well with normal control of her seasonal allergies and asthma symptoms at home. Related Data Home Medications ?Medication ?Instructions ?Recorded ?Confirmed ?Last Taken ?Type albuterol sulfate 90 mcg/actuation inhalation 09/13/19 Unknown History aerosol inhaler beclomethasone dipropionate 80 inhalation 09/13/19 Un known History mcg/actuation HFA breath activated aerosol (Qvar RediHaler) escitalopram oxalate 10 mg tablet mg 09/13/19 Unknown History famotidine 20 mg tablet 09/13/19 Unknown History loratadine 10 mg tablet mg 09/13/19 Unknown History mometasone-formoterol HFA 200 inhalation 09/13/19 Unk nown History mcg-5 mcg/actuation aerosol inhaler (Dulera) Allergies Allergy/AdvReac Type Severity Reaction Status Date / Time No Known Allergies Allergy Unknown Verified 07/25/25 20:30 Review of Systems 2 Review of Systems: As reviewed above in HPI All systems reviewed & are unremarkable except as noted in HPI and below PMFSH Past Medical History Medical History Anxiety Depression Surgical History Surgical History No pertinent past surgical history Social History Social History Smoking status: Never smoker Exam 2 Narrative: GENERAL: [Well-appearing, well-nourished, and in no acute distress.] HEAD: [Normocephalic, atraumatic.] EYES: [PERRLA and EOMI.] ENT: Nares clear, no rhinorrhea or epistaxis. Mucous membranes moist. NECK: Supple. CHEST: Diminishment in both lungs, mildly prolonged expiratory phase, scattered wheezing. Mild tachypnea. Conversing in full sentences. HEART: [Regular rate and rhythm]. No murmur heard. [Normal peripheral pulses.] ABDOMEN: [Soft, nondistended], [nontender], [No rigidity or guarding] EXTREMITIES: Normal range of motion. [No edema.] SKIN: Warm, dry, no rash. NEURO: [No focal deficits]. Alert and oriented [x3.] PSYCH: [Normal mood and affect.] Course Vital Signs Vital signs: Vital Signs Temperature 38.1 C H 07/25/25 20: Pulse Rate 113 H 07/25/25 20: Respiratory Rate 23 H 07/25/25 20: Blood Pressure 133/56 L 07/25/25 20: Pulse Oximetry 97 07/25/25 20:26 Oxygen Delivery Room Air 07/25/25 20: Temperature 38.1 C H 07/25/25 20: Pulse Rate 115 H 07/26/25 01:04 Respiratory Rate 25 H 07/26/25 01:04 Blood Pressure 133/56 L 07/25/25 20: Pulse Oximetry 97 07/25/25 20: Oxygen Delivery Room Air 07/25/25 22:45 MDM MDM Narrative Medical decision making narrative: 25-year-old female with a history of persistent asthma presenting to the emergency department today with chest tightness, difficulty exhaling, shortness of breath and a nonproductive cough and body aches. She endorses a fever and feels like she is cold. Denies any recent sick contacts recent health concerns or illnesses. She has tried her albuterol inhaler at home without any relief of symptoms. No nausea, vomiting, sick contacts, abdominal pain, diarrhea. Was otherwise doing well with normal control of her seasonal allergies and asthma symptoms at home. Patient does have diminished breath sounds as well as some scattered wheezing. She is tachypneic, tachycardic, febrile. Suspect upper respiratory infection, pneumonia, COVID, flu. Will treat her with nebulization treatments as well as steroids as well as fever control with Tylenol. Laboratory studies, chest x-ray and urinalysis ordered. Patient felt significantly better after nebulization treatment. She did test positive for influenza. Vital signs improved with treatment plans here. She feels much better and after discussion of laboratory studies and imaging findings plan will be for discharge home with Tamiflu prescription as well as refill of her nebulization solutions and prednisone for her asthma. We discussed strict return precautions and follow-up instructions. Patient does have some white blood cells in her urine but no urinary complaints and will not treat asymptomatic bacteriuria after we discussed this with the patient. She has no white count or any leukocytosis/anemia. Slightly low platelets which is likely combination of some lab error versus clumping verses response to her infection. Electrolytes largely unremarkable. Normal kidney function. Normal glucose. Normal LFTs. Safe for discharge with return precautions and follow-up instructions as well as prescription medications sent to her pharmacy. Differential Diagnosis Differential Diagnosis: Suspect upper respiratory infection, pneumonia, COVID, flu Lab Data MDM Lab Attestation statement: I personally reviewed the patient's lab results. 07/25/25 23:14 07/25/25 23:14 Labs: Lab Results 07/25/25 07/26/25 Range/Units 23:14 00:04 WBC 9.8 (4.5-10.0) K/mm3 RBC 5.18 (4.2-5.4) M/mm3 Hgb 14.5 (12.0-15.0) g/dL Hct 43.8 (37.0-47.0) % MCV 84.6 (80-100) fl MCH 28.0 (26-34) pg MCHC 33.1 (32-36) g/dl RDW 12.2 (11.5-14.5) % Plt Count 70 L D (150-375) k/mm3 MPV 10.9 H (7.4-10.4) fl Immature Gran % (Auto) 0.5 (0-0.5) % Neut % (Auto) 83.8 H (45.5-73.1) % Lymph % (Auto) 6.7 L (18.3-44.2) % [place] % (Auto) 7.3 (2.6-8.5) % Eos % (Auto) 1.1 (0-4.4) % Baso % (Auto) 0.6 (0.2-1.2) % Lymph # (Auto) 0.65 L (0.9-3.2) K/mm3 [place] # (Auto) 0.7 H (0.1-0.6) K/mm3 Eos # (Auto) 0.1 (0-0.3) K/mm3 Baso # (Auto) 0.1 (0.0-0.1) K/mm3 Abs Immat Gran (auto) 0.05 H (0.00-0.031) K/mm3 Absolute Neuts (auto) 8.2 H (1.3-6.7) K/mm3 Absolute Nucleated RBC 0.000 (0.0-0.012) K/mm3 Nucleated RBC % 0.0 (0.0-0.2) % Sodium 133 L (137-145) mmol/L Potassium 4.2 (3.4-5.0) mmol/L Chloride 109 H (98-107) mmol/L Carbon Dioxide 15 L (22-30) mmol/L Anion Gap 9 (4-12) mmol/L BUN 10 (7-17) mg/dL Creatinine 0.74 (0.7-1.0) mg/dL Estim Creat Clear Calc 129 ml/min Estimated GFR > 60 (59 - ) Glucose 101 (65-110) mg/dL Calcium 9.4 (8.4-10.2) mg/dL Total Bilirubin 0.7 (0.2-1.3) mg/dL AST 29 (14-36) U/L ALT 21 (6-35) U/L Alkaline Phosphatase 60 (38-126) U/L Total Protein 7.9 (6.3-8.2) g/dL Albumin 4.5 (3.5-5.1) g/dL Urine Color Light red H (Yellow) Urine Appearance Cloudy H (Clear) Urine pH 6.0 (5.0-9.0) Ur Specific [place] 1.030 (1.001-1.035) Urine Protein 3+ H (Negative) mg/dL Urine Glucose (UA) Negative (Negative) mg/dL Urine Ketones Negative (Negative) mg/dL Ur Blood (Man) 3+ H (Negative) Urine Nitrate Negative (Negative) Urine Bilirubin 1+ H (Negative) Urine Urobilinogen 0.2 (<2.0) mg/dL Leukocyte Esterase Rfl 2+ H (Negative) TOM/UL Urine RBC >100 H (0-2) /hpf Urine WBC 51-100 H (0-3) /hpf Ur Squamous Epith Cells Few (Few) /hpf Urine Bacteria 1+ /hpf POC Urine HCG, Qual Negative (Negative) Influenza A (RT-PCR) Positive A (Negative) Influenza B (RT-PCR) Negative (Negative) RSV (RT-PCR) Negative (Negative) SARS-CoV-2 RNA (RT-PCR) Negative (Negative) Imaging Data Attestation: I personally reviewed and interpreted this imaging study as follows: My impression: No overt pneumonia or consolidation. No pneumothorax Critical Care Time Critical Care Time Critical Care Time: Yes Time Type: Intermittent Initial evaluation, discuss w/ involved parties, attempting to gather old records: 10 minutes Documenting medical record: 5 minutes Review of results (EKG's, labs, imaging): 5 minutes Serial repeat bedside evaluation: 10 minutes Discussing case with multiple memebers of the care team and consultants: 5 minutes Total Critical Care Time: 35 Discharge Plan Discharge Clinical Impression: Asthma exacerbation, Influenza A, Asymptomatic bacteriuria Patient Disposition: Home Condition: Stable Instructions: Antibiotic Form, Asthma (ED), Influenza (ED) Additional Instructions: You have influenza A as well as an exacerbation of your asthma today. We have sent to a combination medications for symptom control at home. Return with any emergent concerns, difficulty breathing, intractable nausea, vomiting, difficulty hydrating, losing consciousness or any other issues. Follow-up with regular primary care provider otherwise. Expect symptoms to last up to 7-10 days. Patient Language: Colombian Prescriptions: New oseltamivir [Tamiflu] 75 mg capsule 75 mg PO Q12H 5 Days Qty: 10 0RF albuterol sulfate 2.5 mg /3 mL (0.083 %) solution for nebulization 2.5 mg inhalation Q4H PRN (Reason: shortness of breath or wheezing) Qty: 90 0RF ipratropium bromide 0.02 % solution 2.5 ml inhalation Q6H PRN (Reason: shortness of breath or wheezing) Qty: 75 0RF prednisone 50 mg tablet 50 mg PO DAILY 5 Days Qty: 5 0RF ondansetron 4 mg tablet,disintegrating 4 mg PO Q8H PRN (Reason: nausea and vomiting) Qty: 20 0RF No Action famotidine 20 mg tablet albuterol sulfate 90 mcg/actuation HFA aerosol inhaler INHALATION loratadine 10 mg tablet escitalopram oxalate 10 mg tablet Dulera 200-5 mcg/actuation HFA aerosol inhaler INHALATION Qvar RediHaler 80 mcg/actuation HFA aerosol breath activated INHALATION nitrofurantoin monohyd/m-cryst [Macrobid] 100 mg capsule 100 mg PO Q12H 5 Days Qty: 10 0RF Rx Instructions: must administer with a meal/food meloxicam 7.5 mg tablet 7.5 mg PO DAILY Qty: 10 0RF cyclobenzaprine 5 mg tablet 5 mg PO TID PRN (Reason: muscle spasm) Qty: 15 0RF meclizine 12.5 mg tablet 12.5 mg PO TID PRN (Reason: motion sickness) Qty: 10 0RF prednisone 20 mg tablet 40 mg PO DAILY 5 Days Qty: 10 0RF benzonatate 200 mg capsule 200 mg PO TID PRN (Reason: cough) Qty: 21 0RF albuterol sulfate 90 mcg/actuation HFA aerosol inhaler 2 puff inhalation QID PRN (Reason: shortness of breath or wheezing) Qty: 8.5 0RF albuterol sulfate 2.5 mg /3 mL (0.083 %) solution for nebulization 2.5 mg inhalation Q6-8H PRN (Reason: bronchospasm) Qty: 75 0RF prednisone 50 mg tablet 50 mg PO DAILY 5 Days Qty: 5 0RF azithromycin 250 mg tablet See Rx Instructions .ROUTE .COMPLEX Qty: 6 0RF Rx Instructions: For 250 mg dose pack: take 500 mg today (day 1), then 250 mg for 4 days (days 2-5) albuterol sulfate 2.5 mg /3 mL (0.083 %) solution for nebulization 2.5 mg inhalation Q6H Qty: 75 0RF Follow-up/Referrals: PHYSICIAN NOT ON STAFF,NONSTAFF [Non-Staff] Time of Disposition: 01:34
[2025-07-25 23:57] LABS: Influenza A QL RT-PCR Positive (Negative); Influenza B QL RT-PCR Negative (Negative); RSV RNA, RT-PCR Negative (Negative); SARS-CoV-2 RNA PCR Negative (Negative)
--- OUTSIDE RECORDS SUMMARY | 2025-07-25 23:58 | XMS_ITS | Clinical Summary ---
Author Organization [facility] Address [address] [place] [address] Phone Care Team Providers Care Internal Communications Specialist Name Role Phone Odalis Epperson APRN, TANK SETTER Unavailable [phone]- [phone] Evelyn Monroe ALGEBRA TEACHER, RITUAL CIRCUMCISER Primary Care Provider [phone] [phone] Allergies No known active allergies Medications Beclomethasone [...] Department Care Team Description 07/25/2025 [facility] [address] [place] [address] Evelyn Monroe, NATHAN, RITUAL CIRCUMCISER Shortness of Breath; Wheezing; Cough 07/25/2025 [facility]phone [facility] [address] [place] [phone] Evelyn Monroe, ALGEBRA TEACHER, RITUAL CIRCUMCISER Advice Only 06/07/2025 9:30 AM CDT Office Visit [facility] - Neurology [facility] [address] [place] [address] Odalis Epperson APRN, TANK SETTER Chronic migraine with aura without status migrainosus, [...] often do you attend chur ch or orthodoxy services? 1 to 4 times per year 03/19/2025 Do you belong to any clubs o r organizations such as oriental orthodox groups, unions, fraternal or athletic groups, or [...] and heating? Not hard at all 03/19/2025 [facility] [place] of Occupat ional Health - Occupational Stress [...] any time in the past 12 m [facility], were you homeless or living in a skilled nursing (including now)? No 03/19/2025 [facility] Utilities Answer Date Recorded In the past [...] st Contact Info) Description 09/07/2025 9:30 AM SERVICE OBSERVER Office Visit [facility] - Neurology [facility] [address] [place] [address] Cindy Sotelo ALGEBRA TEACHER, RITUAL CIRCUMCISER [address] [place] [address] 09/19/2025 11:00 AM SERVICE OBSERVER Office Visit [facility] - Family Medicine [facility] [address] [place] [address] Evelyn Monroe, ALGEBRA TEACHER, RITUAL CIRCUMCISER 2 [facility]. [address] [place] [address] Health Maintenance Due Date Last Done Comments [...] to complete this topic Insurance MEDICAID AETNA [facility] Care Teams Internal Communications Specialist Relationship Specialty Start Date End Date Fer November N, ALGEBRA TEACHER, RITUAL CIRCUMCISER 2 [facility] [employer]rist[address] [address] PCP - General Advanced Practice Nurse 03/19/25 Odalis Epperson, ALGEBRA TEACHER, TANK SETTER [address] [place] [address] Nurse Practitioner Advanced Practice Nurse 11/28/24
--- OUTSIDE RECORDS SUMMARY | 2025-07-25 23:58 | XMS_ITS | Clinical Summary ---
Author Organization [facility] Address [address] [place] [address] Care Team Providers Care Pattern Technician Name Role Phone Ranjana Lawrence MD Primary Care Provider [phone]- [phone] Source Comments [facility],non-owned Affiliates and Associated Physician Practices is amultiple site organization consisting of ambulatory clinics and hospital sitesin [place], [place], [place] and [place]. This disclosure is being madepursuant to the Care Everywhere program and may not contain all information available regarding this patient. Last updated 18.[facility] [employer] Allergies No known active allergies Medications * [...] 08/27/2016 Assessment & Plan (08/13/2016 10:09 AM SPECTROGRAPH OPERATOR): Assessment: Improving, stable on room air. Plan: -Albuterol treatments Q4 hours -continue prednisone 1 mg/kg PO BID day 1 of 7 -asthma education for patient and family -restart Qvar 80 2 puffs BID with spacer -continue montelukast Assessment & Plan (08/13/2016 8:08 AM SPECTROGRAPH OPERATOR): Assessment: Nena March is a 16 y.o. [...] on file Legal Sex Female 2:29 AM SPECTROGRAPH OPERATOR Gender Identity Not on file Sexual Orientation [...] 163.8 cm (5' 4.5) 08/04/2017 5:34 PM SPECTROGRAPH OPERATOR Body Mass Index - - Plan of [...] Probe Negative Negative 12/07/2018 7:40 AM CDT [facility] GC Amplified Probe Negative Negative 12/07/2018 7:40 AM CDT [facility] Microbiology URINE / Unknown Collection / Unknown 12/06/2018 3:03 PM CDT 12/06/2018 3:28 PM CDT Narrative [facility] - 12/07/2018 7:40 AM CDT Results based on detection/no detection of ribosomal RNA by amplified method. us Stephanie Roa MD LAB - MICROBIOLOGY ORDERABLE S Final Result [facility] [address] [place], [place] [address], [facility] [phone] from Last 3 Months or Most Recently Relevant to Health Maintenance Insurance [facility] Care Teams Pattern Technician Relationship Specialty Start Date End Date Ranjana Lawrence MD [address] [id number] PCP - General Pediatrics 12/06/18
--- OUTSIDE RECORDS SUMMARY | 2025-07-25 23:58 | XMS_ITS | Encounter Summary ---
Author Organization [facility] Address [address] [place] [address] Phone Care Team Providers Care Movement Assembler Name Role Phone Odalis Epperson APRN, SAUSAGE CUTTER Unavailable +1- [phone] Evelyn Monroe APRN, BELLHOP CAPTAIN Primary Care Provider [phone] Reason for Visit * Reason Onset Date Comments Shortness of Breath 07/25/2025 Wheezing 07/25/2025 Cough 07/25/2025 Encounter Details Date Type Department Care Team (Late st Contact Info) Description 07/25/2025 Nurse Triage [facility] [address] [place] [id number] Evelyn Monroe, NATHAN, BELLHOP CAPTAIN 2 [facility] [address] [place] [address] Shortness of Breath; Wheezing; Cough Social History [...] you attend [facility] or latter-day services? 1 to 4 times per year 03/19/2025 Do you belong to any clubs o r organizations such as confucianism groups, unions, fraternal or athletic groups, or [...] and heating? Not hard at all 03/19/2025 [facility] - Occupational Stress [...] any time in the past 12 m [facility], were you homeless or living in a [facility] (including now)? No 03/19/2025 [facility] Utilities Answer Date Recorded In the [...] Angela Mcmillan RN - 07/25/2025 3:23 PM PEST CONTROL SERVICE SALES AGENT SITUATION: 25 y.o. with difficulty breathing and [...] agreeable to prompt care/urgent care. Discussed utilizing [employer] to: schedule appointments - Reason for Disposition: [...] and reviewed all triage information with caller. CONTROL SERVICE SALES AGENT documented in this encounter Plan of Treatment Upcoming Encounters Date Type Department Care Team (Late st Contact Info) Description 09/07/2025 9:30 AM PEST CONTROL SERVICE SALES AGENT Office Visit [facility] - Neurology - [place] [address] [place] [address] Cindy Sotelo APRN, BELLHOP CAPTAIN [address] [place] [address] 09/19/2025 11:00 AM PEST CONTROL SERVICE SALES AGENT Office Visit [facility] - Family Medicine - [place] [address] [place] [address] Evelyn Monroe APRN, AMARILIS [address] [address] documented as of this encounter Visit Diagnoses Not on filedocumented in this encounter Additional Health Concerns Assessment Noted Time PHQ-9 Depression Total Score: 0 03/19/20 25 9:33 AM CDT documented as of this encounter Care Teams Movement Assembler Relationship Specialty Start Date End Date Evelyn Monroe APRN, AMARILIS 2 [facility] [address] [address] PCP - General Advanced Practice Nurse 03/19/25 Odalis Epperson, COMMISSARY CLERK, SAUSAGE CUTTER [address] [place] [address] Nurse Practitioner Advanced Practice Nurse 11/28/24 documented as of this encounter
--- OUTSIDE RECORDS SUMMARY | 2025-07-25 23:58 | XMS_ITS | Encounter Summary ---
Author Organization [facility] Address [address] [place] [address] Phone Care Team Providers Care Apparel Sales Associate Name Role Phone Odalis Epperson APRN, AUTOMATIC GLOVE FORMER Unavailable [phone]- [phone] Evelyn Monroe APRN, COPYHOLDER Primary Care Provider [phone] Reason for Visit * Reason Onset Date Comments Advice Only 07/25/2025 Encounter Details Date Type Department Care Team (Late st Contact Info) Description 07/25/2025 Telephone [facility] [address] [place] [address] Evelyn Monroe, NATHAN, COPYHOLDER 2 [facility] [address] [place] [address] Advice Only Social History Tobacco [...] How often do you attend chur or jainism services? 1 to 4 times per year 03/19/2025 Do you belong to any clubs o r organizations such as denominational groups, unions, fraternal or athletic groups, or [...] and heating? Not hard at all 03/19/2025 [facility] Occupat ional Health - Occupational Stress [...] any time in the past [address] [facility], were you homeless or living in a penitentiary (including now)? No 03/19/2025 [facility] Utilities Answer Date Recorded In the past 12 months has [facility] electric, gas, oil, or water company [...] CST Symptom: Breathing Trouble Outcome: Transfer to network solutions architect queue Reason: Caller denied all higher acuity questions The caller accepted this outcome. Caller Denied: * Bluish color of lips or face now * Choked on something solid * Age less than 1 year old * Uses oxygen * Trouble breathing through the mouth SHARPENER documented in this encounter Plan of Treatment Upcoming Encounters Date Type Department Care Team (Late st Contact Info) Description 09/07/2025 9:30 AM DISK SHARPENER [facility] - [facility] [address] [place] [address] Cindy Sotelo APRN, COPYHOLDER [address] [place] [address] 09/19/2025 11:00 AM DISK SHARPENER Office Visit [facility] - Family Medicine [facility] [address] [place] [address] Evelyn Monroe APRN, COPYHOLDER 2 [facility], [address] [place] [address] documented as of this encounter Visit Diagnoses Not on filedocumented in this encounter Additional Health Concerns Assessment Noted Time PHQ-9 Depression Total Score: 0 03/19/20 25 9:33 AM CDT documented as of this encounter Care Teams Apparel Sales Associate Relationship Specialty Start Date End Date Fer November Rylee, SPLUNK CONSULTANT, COPYHOLDER 2 [facility] KATRIN'Kristofer [address] [address] PCP - General Advanced Practice Nurse 03/19/25 Odalis Epperson APRN, AUTOMATIC GLOVE FORMER [address] [place] [address] Nurse Practitioner Advanced Practice Nurse 11/28/24 documented as of this encounter
[2025-07-25] MEDS: IPRATROPIUM BR 0.02% INH SOLN 0.5 MG/2.5 ML VIAL 1 MG INHALATION (23:59)
[2025-07-25] MEDS: ALBUTEROL SULFATE NEB 2.5 MG/3 ML INH 10 MG INHALATION (23:59)
[2025-07-26] VITALS (7 sets, daily range): BP systolic 116; BP diastolic 82; PULSE 105–115; RESP 20–28; TEMP 36.9; O2SAT 94–97
[2025-07-26] MEDS: LACTATED RINGERS 1,000 ML 999 ML IV CONT (00:02)
[2025-07-26] MEDS: dexAMETHasone SOD PHOS INJ 10 MG/ML 1 ML VIAL IV PUSH (00:03)
[2025-07-26 00:19] LABS: Appearance Urine Cloudy (Clear); Specific Grav Ur 1.030 (1.001-1.035)
[2025-07-26 00:20] LABS: Glucose Urine UA Negative (Negative); Nitrate Urine Negative (Negative)
[2025-07-26 00:21] LABS: Leukocyte Esterase Ur 2+ LEU/UL (Negative)
[2025-07-26 00:23] LABS: Add Urine Microscopic? YES
[2025-07-26 01:01] LABS: BEDSIDEPREGUCG Negative (Negative)
[2025-07-26] MEDS: OSELTAMIVIR PHOSPHATE 75 MG CAPSULE PO (01:04)
[2025-07-26] MEDS: ONDANSETRON INJ 4 MG/2 ML VIAL IV PUSH (02:03)
== END 2025-07-26 02:17 | disposition home or self-care (01) ==
PROVIDERS: Emergency Provider Student in an Organized Health Care Education/Training Program
DX: J10.1 Influenza due to other identified influenza virus with other respiratory manifestations (principal); J45.901 Unspecified asthma with (acute) exacerbation; R82.71 Bacteriuria; Z20.822 Contact with and (suspected) exposure to COVID-19; F41.9 Anxiety disorder, unspecified; F32.A Depression, unspecified
CPT/HCPCS: 36415; 71046; 80053; 81001; 81025; 85025; 87086; 87637; 94640; 96361; 96374; 96375; 99284; A9270; J1100; J2405; J7120